=== PATIENT | male | born 1960 | race Two or more races ===

== ENCOUNTER → 2025-03-17 | Emergency (ER) | payer OTHER ==
[~2025-03-17] VITALS: Ht 165.1 cm; Wt 81.6 kg
[~2025-03-17] MED LIST: KETOROLAC TROMETHAMINE 60 MG VIAL IM ONE; ORPHENADRINE CITRATE 30 MG/ML AMPUL IM ONE; ZESTRIL2.5 MG
== END | disposition home or self-care (01) ==
LOC: ER 16:07
DX: M94.0 Chondrocostal junction syndrome [Tietze] (principal); I10 Essential (primary) hypertension
CPT/HCPCS: 93005; 96372; 99282; J1885; J2360